=== PATIENT | male | born 1940 | race Hispanic/Latino ===

== ENCOUNTER 2018-04-05 06:12 | Day surgery (SDC) | payer MEDICARE ==
[2018-03-23 12:13] VITALS: BMI 24.3
--- NOTE | 2018-04-05 04:44 | HP ---
Copied To: Princess Castillo MD Attending MD: Princess Castillo MD REASON FOR ADMISSION: Left heart cath, possible angioplasty. BRIEF CLINICAL HISTORY: This is a 77-year-old male with past medical history significant for atrial fibrillation, on Eliquis and sotalol. Had abnormal stress test and deterioration of LV function. Patient is scheduled for elective cardiac catheterization and possible angioplasty. Patient denies any chest pain. Patient had history of atrial fibrillation with the controlled rate. Socially, denies any history of alcohol abuse. RECENT CARDIAC WORKUP: As follows, patient had a stress test dated 03/19/2018 that showed ejection fraction 38%. Abnormal myocardial perfusion study, partially reversible anterolateral apical defect suspicious for ischemia dated 03/19/2018. Patient had echocardiogram on 03/19/2018 that revealed left ventricular function with ejection fraction of 45%, [id number] aortic regurgitation, mild aortic stenosis versus aortic sclerosis, pytd-xo-sigvgkze mitral regurgitation, mcwv-ba-avnkneff tricuspid regurgitation, RV systolic pressure of 50, trace pulmonary insufficiency, trace PI. CURRENT MEDICATIONS: Sotalol 120 mg p.o. b.i.d., Eliquis 2.5 p.o. b.i.d. ALLERGIES: NO KNOWN DRUG ALLERGY. SOCIAL HISTORY: Denies any smoking. Denies any history of alcohol abuse. REVIEW OF SYSTEMS: As per HPI. PHYSICAL EXAMINATION: VITAL SIGNS: As follows, height of the patient 5 feet 9 inches, weight of the patient 165 pounds, body mass index 25 kg/sq m. Rest of the examination as follows, temperature afebrile, heart rate 68, blood pressure 120/80. HEENT: PERRLA. Extraocular muscles intact. NECK: Supple. No carotid bruit or thyromegaly. CHEST: Clear to auscultation. HEART: S1 and S2 regular. ABDOMEN: Soft. EXTREMITIES: Clubbing and cyanosis negative. IMPRESSION: A 77-year-old male with past medical history significant for chronic atrial fibrillation, preoperative evaluation for knee surgery, found to be abnormal stress test, apical and anterolateral reversible defect suggestive of ischemia, decreased left ventricular function. Patient is scheduled for elective cardiac catheterization, possible angioplasty. By stress test, ejection fraction 38%. By echo, ejection fraction 45%, mild mitral regurgitation, mild tricuspid regurgitation, mild aortic regurgitation. RECOMMENDATION: Cardiac catheterization. Further recommendation depending on the cardiac catheterization. Patient is on Eliquis and sotalol for atrial fibrillation. Last dose of Eliquis two days ago. We will follow with you. Thank you, Dr. Ochoa, for providing us the opportunity in taking care of the patient, Bernard Lamar. Princess Castillo MD
[2018-04-05] MEDS ORDERED: Iodixanol 320 MG/ML 200 ML BOTTLE IV ONE (07:06)
[2018-04-05] MEDS ORDERED: Nitroglycerin 50mg in D5W 50 MG/250 ML BOTTLE IV ONE (07:06)
[2018-04-05] MEDS ORDERED: Verapamil 2 ML ONE (07:06)
[2018-04-05] MEDS ORDERED: Iohexol 350mgl/ml 50 ML ONE (07:06)
[2018-04-05] MEDS ORDERED: Phenylephrine 10 mg/ml Inj ONE (07:07)
[2018-04-05 07:13] LABS: BASO # 0.01 K/mm3 (0.0-2.0); BASO % 0.2 % (0.0-3.0); EOS # 0.3 (0.0-0.7); EOS % 5.2 % (1.5-5.0); GRAN # 2.99 (1.4-6.5); GRAN % 53.9 % (50.0-68.0); HEMOGLOBIN 13.6 g/dL (14.0-18.0); LYMPH # 1.9 (1.2-3.4); LYMPH % 33.7 % (22.0-35.0); MEAN CORPUSCULAR HEMOGLOBIN 30.9 pg (25.0-35.0); MEAN CORPUSCULAR HGB CONC 33.6 g/dl (31.0-37.0); MONO # 0.4 (0.1-0.6); RBC 4.4 10^6/uL (3.5-6.1); RED CELL DISTRIBUTION WIDTH 13.3 % (11.5-14.5); WHITE BLOOD COUNT 5.6 10^3/ul (4.5-11.0)
[2018-04-05 07:19] VITALS: TEMP 97.8
[2018-04-05 07:19] LABS: INR 1.1; PARTIAL THROMBOPLASTIN TIME 31.6 Seconds (25.1-36.5); PROTHROMBIN TIME 12.7 SECONDS (9.4-12.5)
[2018-04-05 07:20] LABS: BLOOD UREA NITROGEN 22 mg/dL (7-21); CALCIUM 9.1 mg/dL (8.4-10.5); GFR NON-AFRICAN AMERICAN > 60; HDL CHOLESTEROL 43 mg/dL (29-60)
[2018-04-05 07:30] LABS: LDL CHOLESTEROL 80 mg/dL (0-129)
[2018-04-05] MEDS ORDERED: Midazolam 2 MG/2 ML VIAL ONE (07:56)
[2018-04-05] MEDS ORDERED: Adenosine 90 mg/30mL IV ONE (08:16)
[2018-04-05] MEDS ORDERED: Bacitracin 500 Units/gm Oint Foilpak UD TOP ONE (09:00)
[2018-04-05] MEDS ORDERED: Sodium Chloride 0.9% 1,000 ML IV SCH (09:00)
[2018-04-05 09:24] VITALS: RESP 18
--- NOTE | 2018-04-05 09:26 | CPOSTOP ---
DATE: 04/05/2018 CARDIOVASCULAR LAB POSTPROCEDURE NOTE DICTATING PHYSICIAN: Princess Castillo MD. JOB PRINTER APPRENTICE: Princess Castillo MD. WINTER SPORTS MANAGER: Rosemary Delgado, emergency technician. TYPE OF ANESTHESIA: Moderate conscious sedation. Total 1 mg of Versed, 50 of fentanyl given. PRE-PROCEDURE DIAGNOSES: Unstable angina, abnormal stress test, chronic atrial fibrillation. PROCEDURE PERFORMED: 1. Left heart catheterization. 2. Fractional flow reserve. FINDINGS: Distal RCA 70% stenosis. FFR 0.94. FINAL DIAGNOSIS: Nonobstructive coronary artery disease. POST PROCEDURE CONDITION: Post procedure, the patient's condition is stable. VASCULAR ACCESS SITE: Left radial. CLOSURE DEVICE: TR Band. TOTAL RADIATION DOSE: 11,893.5 milligray unit. TOTAL FLUORO TIME: 7.9 minutes. Princess Castillo MD
[2018-04-05 12:09] VITALS: BP 157/112; PULSE 90; O2SAT 99
--- NOTE | 2018-04-05 16:11 | CARD ---
APPROVED REPORT Date of service: 04/05/2018 EKG Measurement Heart [id number] <Conclusion> Atrial fibrillation with rapid ventricular response Septal infarct, age undetermined Abnormal ECG
--- NOTE | 2018-04-05 16:51 | CARD ---
APPROVED REPORT Date of service: 04/05/2018 Procedure(s) performed: Left Heart Catheterization FFR on RCA..........0.94 ( Non Obst CAD) HISTORY The patient is a 77 year-old male with a history of : most recent EF: 38%. (EF Method: RADIONUCLIDE), peripheral vascular disease, tobacco history() : The patient is a former smoker , hypertension , pre-op for knee surgery had an abnormal stress test showed apical and eliseo-lateral Ischemia,Hx of Afib on sotalol and eliquis.. INDICATION The indication(s) include : positive stress test. CASE TECHNIQUE The patient was brought electively to the Cardiac Catheterization Laboratory in a fasting state and was prepped and draped in a sterile manner. The left wrist was infiltrated with 2% Lidocaine subcutaneous anesthesia. A 6FR GLIDESHEATH ACCESS KIT sheath was inserted into the left radial artery without difficulty. Coronary angiography was performed using coronary diagnostic catheters. The left coronary system was accessed and visualized with a Diagnostic ,6 Fr JL 3.5 catheter. The right coronary system was accessed and visualized with a Diagnostic ,5 Fr JR 4 catheter. The left ventricle was accessed and visualized with a 5F PIGTAIL 145 CATH DXT 110 CM catheter. Left ventricular/Aortic Valve gradient assessed on pullback. Closure device was deployed with a Fr TR Band (Regular) without any complications. The patient tolerated the procedure well and there were no complications associated with the procedure. Vessel Analysis The patient's coronary anatomy is co-dominant. The left main coronary artery is a large size vessel with diffuse calcification noted throughout this vessel and without significant stenosis. The left main bifurcates to the left anterior descending and circumflex. The left anterior descending artery is a medium size vessel with diffuse calcification noted throughout this vessel and without significant stenosis. There is a 30% stenosis in the mid segment. The first diagonal branch is a medium size vessel with diffuse calcification noted throughout this vessel and without significant stenosis. The second diagonal branch is a medium size vessel with diffuse calcification noted throughout this vessel and without significant stenosis. The third diagonal branch is a small size vessel with diffuse calcification noted throughout this vessel and without significant stenosis. The circumflex artery is a large size vessel with diffuse calcification noted throughout this vessel and without significant stenosis. The first obtuse marginal branch is a small size vessel with diffuse calcification noted throughout this vessel and without significant stenosis. The second obtuse marginal branch is a large size vessel with diffuse calcification noted throughout this vessel and without significant stenosis. The third obtuse marginal branch is a medium size vessel with diffuse calcification noted throughout this vessel and without significant stenosis. The left posterior descending artery is a medium size vessel with diffuse calcification noted throughout this vessel and without significant stenosis. The right coronary artery is a large size vessel with diffuse calcification noted throughout this vessel and with significant stenosis. There is a 70% stenosis in the distal segment. The right posterior descending artery is a medium size vessel with diffuse calcification noted throughout this vessel and without significant stenosis. The right posterolateral branch is a medium size vessel with diffuse calcification noted throughout this vessel and without significant stenosis. Left Ventricle The left ventricle is normal in size with normal contractility. There was no cardiomyopathy. The left ventricular ejection fraction is estimated to be 55%. The left ventricular end diastolic pressure is 6-8 mmHg. There was no gradient across the aortic valve upon pullback. IVUS Anticoagulation was achieved with Heparin. Fractional Flow [place] was performed on the distal right coronary artery vessel. A 6 Fr JR 3.5 Guide Catheter was used to engage the RCA ostium. A 0.035 x 260 cm J Tip Interventional Guidewire was used. A FFR wire was used. FINDINGS FFR .....0.94 upto 2.15 minutes of Infusion of adenosine ( non Obst CAD) PCI Technique Lesion Percutaneous coronary intervention was performed on the mistal right coronary artery. Conclusion Non obstructive CAD limited to Distal RCA -70%, but FFR ..0.94. EF-50% ( afib. and hand injection), EDP-6-8 mmof hg. Recommendations Aggressive Medical TherapyCardiac Risk Reduction Program F/u Stress tyerst in one year to monitor progression of CAD. Resume sotalol today and eliquis from tomorrow evening. Pt/. is cleared to go for Knee surgery with Moderate risk, hold eliquis 48 hours before surgery. CC; Drs. Nehemiah hair / Wei.
== END 2018-04-05 15:25 | disposition home or self-care (01) ==
LOC: CATH 06:12
PROVIDERS: ATTEND Internal Medicine Cardiovascular Disease
DX: I25.10 Atherosclerotic heart disease of native coronary artery without angina pectoris (principal); I48.2 Chronic atrial fibrillation; Z79.01 Long term (current) use of anticoagulants; I10 Essential (primary) hypertension; I08.3 Combined rheumatic disorders of mitral, aortic and tricuspid valves; I73.9 Peripheral vascular disease, unspecified; Z87.891 Personal history of nicotine dependence
CPT/HCPCS: 36415; 80048; 80061; 85025; 85610; 85730; 86850; 86900; 93005; 93458; 93571; 99152; 99153; C1769 ×2; C1887 ×2; J0153; J1644 ×2; J2250; J3010; J7030; J7040; Q9966